=== PATIENT | female | born 1980 | race Caucasian/White ===

== ENCOUNTER 2017-07-27 02:54 | Emergency (ER) | payer OTHER ==
[~2017-07-27] VITALS: Ht 157.5 cm; Wt 86.2 kg
[2017-07-27 03:02] VITALS: BP 158/92; Ht 157.5 cm; Wt 86.2 kg
== END 2017-07-27 05:54 | disposition left against medical advice (07) ==
LOC: ED 02:54
DX: Z53.21 Procedure and treatment not carried out due to patient leaving prior to being seen by health care provider (principal)

== ENCOUNTER 2018-11-23 17:24 | Emergency (ER) | payer OTHER ==
[~2018-11-23] VITALS: Ht 157.5 cm; Wt 85.3 kg
[2018-11-23 17:37] VITALS: Ht 157.5 cm; Wt 85.3 kg
[2018-11-23 19:12] VITALS: BP 132/78
== END 2018-11-23 19:12 | disposition home or self-care (01) ==
LOC: ED 17:24
DX: M54.5 Low back pain (principal); I10 Essential (primary) hypertension; F41.9 Anxiety disorder, unspecified; R12 Heartburn; Z88.1 Allergy status to other antibiotic agents
CPT/HCPCS: J1885

== ENCOUNTER 2019-04-07 04:08 | Emergency (ER) | payer OTHER ==
[~2019-04-07] VITALS: Ht 157.5 cm; Wt 87.7 kg
[2019-04-07 04:13] VITALS: Ht 157.5 cm; Wt 87.7 kg
[2019-04-07 06:17] VITALS: BP 128/82
== END 2019-04-07 06:17 | disposition home or self-care (01) ==
LOC: ED 04:08
DX: R50.9 Fever, unspecified (principal); I10 Essential (primary) hypertension; F41.9 Anxiety disorder, unspecified; Z00.00 Encounter for general adult medical examination without abnormal findings; Z88.1 Allergy status to other antibiotic agents
CPT/HCPCS: Q0092

== ENCOUNTER 2019-05-13 03:17 | Emergency (ER) | payer OTHER ==
[~2019-05-13] VITALS: Ht 157.5 cm; Wt 85.9 kg
[2019-05-13 04:02] LABS: microscopic required? YES; urine erythrocyte TRACE (NEGATIVE)
[2019-05-13 05:08] VITALS: BP 143/69
== END 2019-05-13 05:08 | disposition home or self-care (01) ==
LOC: ED 03:17
PROVIDERS: Emergency Medicine
DX: N39.0 Urinary tract infection, site not specified (principal); F41.9 Anxiety disorder, unspecified; Z88.1 Allergy status to other antibiotic agents